=== PATIENT | female | born 1950 | race Native Hawaiian/Other Pacific Islander ===

== ENCOUNTER 2017-08-06 13:33 | Outpatient (CLI) | payer OTHER ==
[2017-08-06 15:17] LABS: PLATELET COUNT 226 K/uL (152-353)
[2017-08-06 16:46] LABS: POTASSIUM 4.1 mmol/L (3.6-5.2)
== END 2017-08-06 19:40 | disposition home or self-care (01) ==
LOC: LAB 13:33
PROVIDERS: Internal Medicine
DX: I10 Essential (primary) hypertension (principal); R79.89 Other specified abnormal findings of blood chemistry
CPT/HCPCS: 36415; 80053; 81000; 82043; 82306; 82570; 82607; 82728; 82746; 83036; 83540; 83550; 83735; 84100; 84155; 84439; 84443; 84550; 85027; 85651; 86431

== ENCOUNTER 2018-02-24 12:39 | Outpatient (CLI) | payer OTHER ==
[2018-02-24 13:06] LABS: PLATELET COUNT 226 K/uL (152-353)
== END 2018-02-24 23:24 | disposition home or self-care (01) ==
LOC: LABW 12:39
PROVIDERS: Internal Medicine
DX: I10 Essential (primary) hypertension (principal)
CPT/HCPCS: 80053; 81000; 82043; 82570; 83735; 84100; 84155; 85027

== ENCOUNTER 2018-08-26 12:20 | Outpatient (CLI) | payer OTHER ==
[2018-08-26 13:13] LABS: PLATELET COUNT 243 K/uL (152-353)
== END 2018-08-26 22:40 | disposition home or self-care (01) ==
LOC: LABW 12:20
PROVIDERS: Internal Medicine
DX: I10 Essential (primary) hypertension (principal); R82.998 Other abnormal findings in urine
CPT/HCPCS: 36415; 80053; 81000; 82043; 82570; 83735; 84100; 84155; 85027; 87077; 87086; 87088; 87186

== ENCOUNTER 2019-07-26 11:34 | Outpatient (CLI) | payer OTHER ==
[2019-07-26 12:26] LABS: POTASSIUM 3.4 mmol/L (3.6-5.2)
[2019-07-26 12:55] LABS: PLATELET COUNT 255 K/uL (152-353)
== END 2019-07-26 22:30 | disposition home or self-care (01) ==
LOC: LABW 11:34
PROVIDERS: Internal Medicine
DX: N18.3 Chronic kidney disease, stage 3 (moderate) (principal)
CPT/HCPCS: 36415; 80053; 81000; 82043; 82570; 83735; 84100; 84155; 85027

== ENCOUNTER 2021-10-20 10:38 | Outpatient (CLI) | payer OTHER | END 2021-10-20 18:58 | disposition home or self-care (01) | LOC: RAD 10:38 | PROVIDERS: ATTEND Internal Medicine | DX: R06.09 Other forms of dyspnea (principal) ==